=== PATIENT | female | born 1990 | race Caucasian/White ===

== ENCOUNTER 2016-07-02 12:57 | Emergency (ER) | payer OTHER ==
[2016-07-02 13:01] VITALS: BMI 33.7
[2016-07-02 14:13] LABS: URINE APPEARANCE SLCLOUDY; URINE BILIRUBIN NEGATIVE (NEGATIVE); URINE COLOR YELLOW; URINE GLUCOSE (UA) NEGATIVE (NEGATIVE); URINE KETONE NEGATIVE (NEGATIVE); URINE LEUK ESTERASE NEGATIVE (NEGATIVE); URINE NITRITE NEGATIVE (NEGATIVE); URINE UROBILINOGEN NEGATIVE E.U./dl (0.2-1.0)
[2016-07-02 14:25] LABS: URINE BLOOD 3+ (NEGATIVE); URINE PROTEIN 2+ (NEGATIVE)
[2016-07-02 14:27] LABS: URINE BACTERIA RARE /hpf (NONE SEEN); URINE MUCUS RARE; URINE RBC 1409 /hpf (0-3); URINE WBC 64 /hpf (3-5)
[2016-07-02] MEDS ORDERED: IBUPROFEN 400 MG TABLET (FP) PO ONE ×2 (15:02→15:19)
--- NOTE | 2016-07-02 15:05 | PDOC ---
History of Present Illness <Jin Leiva - Last Filed: 07/02/16 14:59> - General History Source: Patient Exam Limitations: No Limitations - History of Present Illness Initial Comments: 07/02/16 15:08 The patient is a 25 year old female, with no significant past medical history, who presents to the emergency department with vaginal bleeding and abdominal pain onset last night. She describes her abdominal pain as a cramping sensation , ranging from mild to moderate, without radiation or modifying factors. She states that initially her menstrual cycle was 1.5 weeks late and took a test that was negative. Two days later she had spotting. A week passed with no vaginal bleeding but again started to spot along with brown discharges. She took a test last night which initially looked negative but on a second look this morning the second line was faint. She denies being on control and is sexually active with 1 person. She denies any history of STDs or abnormal pap smears. The patient denies chest pain, shortness of breath, headache and dizziness. Denies fever, chills, nausea, vomit, diarrhea and constipation. Denies dysuria, frequency and urgency. Allergies: None Past surgical history: Tonsillectomy, elective (18 years old) Social history: No alcohol, tobacco or drug use reported PMD - Dr Gabriel Ruiz <Sean Gleason - Last Filed: 07/02/16 15:09> - General Chief Complaint: Pain Stated Complaint: POSS PRG/VAGINAL BLEEDING Time Seen by Provider: 07/02/16 13:24 Past History - Past Medical History Other medical history: DENIES. - Reproductive History (#): 1 Para: 0 - Psycho/Social/Smoking Cessation Hx Anxiety: No Suicidal Ideation: No Smoking History: Never smoked Hx Alcohol Use: No Drug/Substance Use Hx: No Substance Use Type: None <Jin Leiva - Last Filed: 07/02/16 14:59> <Sean Gleason - Last Filed: 07/02/16 15:09> - Past Medical History Allergies/Adverse Reactions: Allergies Allergy/AdvReac Type Severity Reaction Status Date / Time No Known Allergies Allergy Verified 07/02/16 12:59 Home Medications: Ambulatory Orders NK [No Known Home Medication] 07/02/16 Review of Systems - Review of Systems Constitutional: No: Chills, Fever Respiratory: No: Cough, Shortness of Breath Cardiac (ROS): No: Chest Pain : Yes: See HPI. No: Burning, Dysuria, Frequency All Other Systems: Reviewed and Negative <Jin Leiva - Last Filed: 07/02/16 14:59> *Physical Exam - Vital Signs Last Vital Signs Temp Pulse Resp BP Pulse Ox 98.7 F 94 H 18 152/93 99 07/02/16 12:58 07/02/16 12:58 07/02/16 12:58 07/02/16 12:58 07/02/16 12:58 <Pritesh Leivafaele - Last Filed: 07/02/16 14:59> - Vital Signs Last Vital Signs Temp Pulse Resp BP Pulse Ox 98.7 F 94 H 18 152/93 99 07/02/16 12:58 07/02/16 12:58 07/02/16 12:58 07/02/16 12:58 07/02/16 12:58 - Physical Exam Comments: 07/02/16 15:08 GENERAL: The patient is awake, alert, and fully oriented, in no acute distress. HEAD: Normal with no signs of trauma. EYES: Pupils equal, round and reactive to light, extraocular movements intact, sclera anicteric, conjunctiva clear with no pallor. ENT: Ears normal, nares patent, oropharynx clear without exudates. Moist mucous membranes. NECK: Normal range of motion, supple without lymphadenopathy, JVD, or masses. LUNGS: Breath sounds equal, clear to auscultation bilaterally. No wheeze/ crackles. HEART: Regular rate and rhythm, normal S1 and S2 without murmur or rub. ABDOMEN: +Suprapubic discomfort, no guarding or rebound. Soft/nondistended. BS wnl. No palpable masses. No hepatosplenomegaly. EXTREMITIES: Normal range of motion, no edema. No clubbing or cyanosis. No cords , erythema, or tenderness. NEUROLOGICAL: Cranial nerves II through XII grossly intact. Normal speech, normal gait. PSYCH: Normal mood, normal affect. SKIN: Warm, Dry, normal turgor, no rashes or lesions noted. <Sean Gleason - Last Filed: 07/02/16 15:09> ED Treatment Course - ADDITIONAL ORDERS Additional order review: Laboratory Results 07/02/16 13:25 Urine Color Yellow Urine Appearance Slcloudy Urine pH 5.0 Ur Specific [place] 1.014 Urine Protein 2+ H Urine Glucose (UA) Negative Urine Ketones Negative Urine Blood 3+ H Urine Nitrite Negative Urine Bilirubin Negative Urine Urobilinogen Negative Ur Leukocyte Esterase Negative Urine RBC 1409 Urine WBC 64 Ur Epithelial Cells Rare Urine Bacteria Rare Urine Mucus Rare Urine HCG, Qual Negative <Jin Leiva - Last Filed: 07/02/16 14:59> - ADDITIONAL ORDERS Additional order review: Laboratory Results 07/02/16 13:25 Urine Color Yellow Urine Appearance Slcloudy Urine pH 5.0 Ur Specific [place] 1.014 Urine Protein 2+ H Urine Glucose (UA) Negative Urine Ketones Negative Urine Blood 3+ H Urine Nitrite Negative Urine Bilirubin Negative Urine Urobilinogen Negative Ur Leukocyte Esterase Negative Urine RBC 1409 Urine WBC 64 Ur Epithelial Cells Rare Urine Bacteria Rare Urine Mucus Rare Urine HCG, Qual Negative <Sean Gleason - Last Filed: 07/02/16 15:09> Medical Decision Making - Medical Decision Making 07/02/16 15:00 A portion of this note was documented by scribe services under my direction. I have reviewed the details of the note, within reason, and agree with the documentation with the following case summary and management plan written by me. Healthy 25-year-old female LMP 06/14 presents with irregular menstrual bleeding. Patient had late menses on 06/14, otherwise normal and now presents with cramping and vaginal spotting. Had a negative urine test last night and she felt this morning it looked slightly positive, so she presents for evaluation. No other discharge. Afebrile. Urine is negative Abdominal and pelvic exam are normal with blood in vault, no other discharge, no CMT or adnexal tenderness (chaperoned by medical lab scientist) Urinalysis with blood but no evidence of infection Patient reassured, likely irregular menses, will follow-up with her [facility] as needed. <Jin Leiva - Last Filed: 07/02/16 14:59> *DC/Admit/Observation/Transfer <Jin Leiva - Last Filed: 07/02/16 14:59> - Attestations Scribe Attestion: 07/02/16 15:09 Documentation prepared by Sean Gleason, acting as medical receptionist assistant for Jin Leiva MD <Sean Gleason - Last Filed: 07/02/16 15:09> Diagnosis at time of Disposition: Irregular menstrual bleeding - Referrals Referrals: Ervin Ruiz MD [Primary Care Provider] - - Patient Instructions Printed Discharge Instructions: DI for Vaginal Bleeding Additional Instructions: Activity as tolerated. Stay hydrated. Tylenol 1000 mg every 8 hours and/or ibuprofen 600-800 mg every 8 hours as needed for pain. Your vaginal bleeding is likely due to irregular periods, the urine test here was negative. You should follow up with your primary doctor and [facility] as soon as possible regarding today's emergency department visit. Return to the emergency department for any new or concerning symptoms, particularly severe pain, very heavy bleeding, fevers or chills. A culture was sent to rule out infection, the results should be available in 3-4 days.
[2016-07-02 15:26] VITALS: BP 149/85; PULSE 90; TEMP 98.2
== END 2016-07-02 15:26 | disposition home or self-care (01) ==
LOC: SUPCPDRO 12:57 → JER 12:57
DX: N92.5 Other specified irregular menstruation (principal)
CPT/HCPCS: 36415; 81003; 81015; 84703; 87491; 87591; 99283-25

== ENCOUNTER 2017-02-14 11:26 | Emergency (ER) | payer OTHER ==
[2017-02-14 11:47] VITALS: BP 120/68; PULSE 97; TEMP 98.2; BMI 33.7
--- NOTE | 2017-02-14 13:02 | PDOC ---
History of Present Illness - General Chief Complaint: Back Pain Stated Complaint: PAIN/ RT SHOULDER Time Seen by Provider: 02/14/17 12:40 History Source: Patient Exam Limitations: No Limitations - History of Present Illness Initial Comments: 02/14/17 13:06 My chief complaint: Right upper back pain, History of Present Illness: PT. IS A 26 Y/O FEMALE WITH H/O ASTHMA HERE TODAY C/ O PAIN RT. MEDIAL SCAPULAR AREA WITH MOVEMENT FOR 2 1/2 WKS. 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 SHOULDER TO CARRY. PT. ALSO C/O COUGH LAST NIGHT WITH WHEEZING WITH RELIEF FROM VENTOLIN PUMP. PT. ALSO C/O NASAL CONGESTION RT. NOSTRIL FOR FEW DAYS. PT IS NOT ON ANY OCP'S. PT. DENIES SHORTNESS OF BREATH. 02/14/17 13:17 Timing/Duration: intermittent Severity: moderate Associated Symptoms: reports: cough (last night none today, wheezing last night relieved by ventolin ), other (right medial scapular area with movement ) Past History - Past Medical History Allergies/Adverse Reactions: Allergies Allergy/AdvReac Type Severity Reaction Status Date / Time No Known Allergies Allergy Verified 02/14/17 11:43 Home Medications: Ambulatory Orders Fluticasone Prop 0.05% Nasal [Flonase -] 2 spray NS DAILY #1 spray.pump Naproxen [Naprosyn -] 500 mg PO Q12H PRN #14 tablet MDD 2 02/14/17 Asthma: Yes COPD: No - Reproductive History (#): 1 Para: 0 - Suicide/Smoking/Psychosocial Hx Smoking History: Never smoked Hx Alcohol Use: No Drug/Substance Use Hx: No Substance Use Type: None Review of Systems - Review of Systems Able to Perform ROS?: Yes Constitutional: No: Symptoms Reported HEENTM: Yes: Nose Congestion (right nostril ) Respiratory: Yes: Cough (dry last night, wheezing last night relieved by ventolin ), Wheezing (last night ). No: Orthopnea, Shortness of Breath, SOB with Exertion, SOB at Rest, Stridor, Productive cough Cardiac (ROS): No: Symptoms Reported ABD/GI: No: Symptoms Reported : No: Symptoms Reported Musculoskeletal: Yes: Muscle Pain (right medial scapular with movement ) Integumentary: No: Symptoms Reported Neurological: No: Symptoms reported *Physical Exam - Vital Signs Last Vital Signs Temp Pulse Resp BP Pulse Ox 98.2 F 97 H 19 120/68 98 02/14/17 11:44 02/14/17 11:44 02/14/17 11:44 02/14/17 11:44 02/14/17 11:44 - Physical Exam General Appearance: Yes: Appropriately Dressed HEENT: positive: TMs Normal, Pharyngeal Erythema, Nasal Congestion (rt. nostril ), Other (no tonsils). negative: Rhinorrhea Neck: negative: Lymphadenopathy (R), Lymphadenopathy (L) Respiratory/Chest: positive: Lungs Clear, Normal Breath Sounds. negative: Chest Tender, Respiratory Distress Cardiovascular: positive: Regular Rhythm, Regular Rate, S1, S2 Musculoskeletal: positive: Normal Inspection. negative: CVA Tenderness, CVA Tenderness (R), CVA Tenderness (L), Decreased Range of Motion (upper extremities ), Vertebral Tenderness Extremity: positive: Normal Capillary Refill, Normal Inspection, Normal Range of Motion (b/l shoulders), Tender (rt. medial muscular tenderness medial to scapular, paraspinal muscle tenderness right thoracic ) Integumentary: positive: Normal Color Neurologic: positive: Fully Oriented, Alert, Normal Response, Motor Strength 5/ 5 (b/l upper extremities ), Respond to painful stimul (b/l upper extremities ), Responsive. negative: Numbness, Sensory Deficit (b/l upper extremities ) Medical Decision Making - Medical Decision Making 02/14/17 13:15 PT. IS A 26 Y/O FEMALE WITH H/O ASTHMA HERE TODAY C/O PAIN RT. MEDIAL SCAPULAR AREA WITH MOVEMENT FOR 2 1/2 WKS. 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 SHOULDER TO CARRY. PT. ALSO C/O COUGH LAST NIGHT WITH WHEEZING WITH RELIEF FROM VENTOLIN PUMP. PT. ALSO C/O NASAL CONGESTION RT. NOSTRIL FOR FEW DAYS. PT IS NOT ON ANY OCP'S. RT. UPPER BACK PAIN MEDIAL TO SCAPULAR THORACIC AREA' NASAL CONGESTION PLAN: URINE HCG NEGATIVE TORADOL 60 MG IM NOW 02/14/17 13:38 FEELIMG BETTER WILL DISCHARGE TO HOME FOLLOW UP WITH ORTHOPEDIST NAPROSYN 500 MG BID PRN PAIN # 14 TABS 02/14/17 23:09 *DC/Admit/Observation/Transfer Diagnosis at time of Disposition: Upper back pain on right side, Nasal congestion - Discharge Dispostion Disposition: HOME Condition at time of disposition: Stable - Prescriptions Prescriptions: Fluticasone Prop 0.05% Nasal [Flonase -] 2 spray NS DAILY #1 spray.pump Naproxen [Naprosyn -] 500 mg PO Q12H PRN #14 tablet MDD 2 PRN Reason: Pain - Referrals Referrals: Ervin Ruiz MD [Primary Care Provider] - - Patient Instructions - Post Discharge Activity
[2017-02-14] MEDS ORDERED: KETOROLAC TROMETHAMINE 60 MG/2 ML VIAL ONE ×2 (13:25→13:27)
== END 2017-02-14 13:45 | disposition home or self-care (01) ==
LOC: JERFT 11:26
DX: M54.9 Dorsalgia, unspecified (principal); R09.81 Nasal congestion; J45.909 Unspecified asthma, uncomplicated
CPT/HCPCS: 84703; 99281-25

== ENCOUNTER 2019-03-06 04:05 | Emergency (ER) | payer OTHER ==
[2019-03-06 04:28] VITALS: BP 116/84; PULSE 108; TEMP 98.8; BMI 37.0
[2019-03-06] MEDS ORDERED: ACETAMINOPHEN 500 MG TABLET (FP) PO ONE (04:42)
--- NOTE | 2019-03-06 04:46 | PDOC ---
History of Present Illness - General Chief Complaint: Ear Problem Stated Complaint: R EAR PAIN Time Seen by Provider: 03/06/19 04:28 History Source: Patient Exam Limitations: No Limitations - History of Present Illness Initial Comments: 03/06/19 04:46 HISTORY OF PRESENT ILLNESS: This a 28-year-old woman with past medical history of tonsillectomy presents emergency department for evaluation of acute onset right ear pain starting this morning when she woke up. Patient reports she took Tylenol which helped relieve the pain in her ear. When the Tylenol wore off the pain came back and was more intense than it was upon initial presentation. Pain is currently 7/10 and describes as a pressure throbbing sensation. Pain radiates to her throat on the right side. Patient took Motrin prior to coming to the hospital tonight. She denies any discharge or drainage from the ears. Patient does use Q-tips but does not use ear buds or headphones. Patient denies any recent swimming or trauma. No recent travel or sick contacts. PAST MEDICAL HISTORY: Denies past medical history SURGICAL HISTORY: Tonsillectomy 1999 ALLERGIES: No known drug allergies REVIEW OF SYSTEMS General/Constitutional: Denies fever or chills. Denies weakness, weight change. HEENT: See HPI Cardiovascular: Denies chest pain or shortness of breath. Respiratory: Denies cough, wheezing, or hemoptysis. Gastrointestinal: Denies nausea, vomiting, diarrhea or constipation. Denies rectal bleeding. Genitourinary: Denies dysuria, frequency, or change in urination. Musculoskeletal: Denies joint or muscle swelling or pain. Denies neck or back pain. Skin and breasts: Denies rash or easy bruising. Neurologic: Denies headache, vertigo, loss of consciousness, or loss of sensation. Psychiatric: Denies depression or anxiety. Endocrine: Denies increased thirst. Denies abnormal weight change. Hematologic/Lymphatic: Denies anemia, easy bleeding, or history of blood clots. Allergic/Immunologic: Denies hives or skin allergy. Denies latex allergy. PHYSICAL EXAM General Appearance: Well-appearing, appropriately dressed. No apparent distress , no intoxication. HEENT: EOMI, PERRLA, normal ENT inspection, normal voice, pharynx normal. No conjunctival pallor. No photophobia, scleral icterus. Left TM is within normal limits. Right TM is erythematous and bulging. External auditory canals clear without erythema or exudates. No mastoid or tragal tenderness bilaterally. Neck: Supple. Trachea midline. No tenderness, rigidity, carotid bruit, stridor , lymphadenopathy, or thyromegaly. Respiratory/Chest: Lungs CTAB. No shortness of breath, chest tenderness, respiratory distress, accessory muscle use. No crackles, rales, rhonchi, stridor , wheezing, dullness Cardiovascular: RRR. S1, S2. No JVD, murmur, bradycardia, tachycardia. Neurologic: tuna purse seiner II-XII intact. Fully oriented, alert. Appropriate mood/affect. Motor strength 5/5. No appreciable EOM palsy, facial droop or sensory deficit. Is this a multiple visit Asthma Patient?: No Past History - Past Medical History Allergies/Adverse Reactions: Allergies Allergy/AdvReac Type Severity Reaction Status Date / Time No Known Allergies Allergy Verified 03/06/19 04:30 Home Medications: Ambulatory Orders Fluticasone Prop 0.05% Nasal [Flonase -] 2 spray NS DAILY #1 spray.pump Naproxen [Naprosyn -] 500 mg PO Q12H PRN #14 tablet MDD 2 02/14/17 Amoxicillin - [Amoxicillin 500mg Capsule -] 1,000 mg PO BID #40 capsule Asthma: Yes COPD: No - Reproductive History (#): 1 Para: 0 - Psycho Social/Smoking Cessation Hx Smoking History: Never smoked Hx Alcohol Use: No Drug/Substance Use Hx: No Substance Use Type: None *Physical Exam - Vital Signs Last Vital Signs Temp Pulse Resp BP Pulse Ox 98.8 F 108 H 19 116/84 98 03/06/19 04:10 03/06/19 04:10 03/06/19 04:10 03/06/19 04:10 03/06/19 04:10 Medical Decision Making - Medical Decision Making 03/06/19 04:49 A/P: 28-year-old woman with acute otitis media of the right ear Likely a viral infection given patient's nasal congestion and sore throat. since patient is experiencing worsening pain which she describes as crescendo I will treat with antibiotics on discharge. Tylenol 1 g orally now Discharge home with prescription for amoxicillin 1 g twice daily for 10 days. We will give referral for ENT follow-up I discussed the physical exam findings, ancillary test results and final diagnoses with the patient. I answered all of the patient's questions. The patient was satisfied with the care received and felt comfortable with the discharge plan and treatment plan. The patient will call their primary care physician within 24 hours to arrange follow-up and will return to the Emergency Department with any new, persistent or worsening symptoms.. Discharge - Discharge Information Problems reviewed: Yes Clinical Impression/Diagnosis: Otitis media Qualifiers: Otitis media type: unspecified Laterality: right Qualified Code(s): H66.91 - Otitis media, unspecified, right ear Condition: Fair Disposition: HOME - Admission No - Additional Discharge Information Prescriptions: Amoxicillin - [Amoxicillin 500mg Capsule -] 1,000 mg PO BID #40 capsule - Follow up/Referral Referrals: Ervin Ruiz MD [Primary Care Provider] - Stewart Yee MD [Staff Physician] - - Patient Discharge Instructions Additional Instructions: Take amoxicillin 1000 mg twice a day as prescribed. Give your child Tylenol and Motrin as needed for fever and pain. Follow manufacturers instructions for appropriate dosage. Make an appointment with the ENT specialist for reevaluation symptoms do not improve in the next 4 days. Return to emergency department for worsening pain, fevers even while giving medication, drainage from the ears, or any other concerns. Thank you very much for choosing us to provide your emergent healthcare needs. - Post Discharge Activity
[2019-03-06] MEDS ORDERED: ACETAMINOPHEN 500 MG TABLET (FP) ONE (04:54)
== END 2019-03-06 04:57 | disposition home or self-care (01) ==
LOC: JER 04:05
DX: H66.91 Otitis media, unspecified, right ear (principal)
CPT/HCPCS: 99281-25

== ENCOUNTER 2021-08-22 12:08 | Emergency (ER) | payer OTHER ==
[2021-08-22 12:11] VITALS: BP 129/72; PULSE 85; TEMP 98.8; BMI 38.2
== END 2021-08-22 13:21 | disposition home or self-care (01) ==
LOC: JERFT 12:08
DX: S60.312A Abrasion of left thumb, initial encounter (principal); W55.03XA Scratched by cat, initial encounter
CPT/HCPCS: 99283-25

== ENCOUNTER 2023-10-18 20:10 | Emergency (ER) | payer OTHER ==
[2023-10-18 20:21] VITALS: RESP 16; TEMP 98.6; BMI 38.6
[2023-10-18] MEDS ORDERED: ACETAMINOPHEN INJECTION 100 ML IVPB ONE (21:57)
[2023-10-18] MEDS: SODIUM CHLORIDE 0.9% 500 ML INFUS.BAG IV ONE (22:04)
[2023-10-18] MEDS: ACETAMINOPHEN 1000 MG/100 ML BAG IVPB ONE (22:04)
[2023-10-18 22:13] LABS: BASO % 0.7 % (0-2.0); EOS % 3.2 % (0-4.5); HEMATOCRIT 40.5 % (32.4-45.2); HEMOGLOBIN 13.7 GM/dL (10.7-15.3); LYMPH % 30.1 % (8-40); MCHC 33.8 g/dl (32.0-36.0); MEAN PLT VOLUME 7.7 fl (7.5-11.1); PLATELET COUNT 383 10^3/uL (134-434); RBC 5.07 M/mm3 (3.60-5.2); RDW 14.7 % (11.6-15.6); WHITE BLOOD COUNT 13.8 K/mm3 (4.0-10.0)
[2023-10-18 22:18] LABS: PH,URINE 5.5 (5.0-8.0); URINE APPEARANCE CLEAR; URINE BILIRUBIN NEGATIVE (NEGATIVE); URINE COLOR YELLOW; URINE GLUCOSE (UA) NEGATIVE (NEGATIVE); URINE KETONE TRACE (NEGATIVE); URINE LEUK ESTERASE NEGATIVE (NEGATIVE); URINE NITRITE NEGATIVE (NEGATIVE); URINE PROTEIN NEGATIVE (NEGATIVE); URINE UROBILINOGEN 0.2 mg/dL (0.2-1.0)
[2023-10-18 22:30] LABS: POTASSIUM 3.9 mmol/L (3.5-5.1)
[2023-10-18 22:32] LABS: CALCIUM 9.1 mg/dL (8.5-10.1)
[2023-10-18 22:33] LABS: BLOOD UREA NITROGEN 15.2 mg/dL (7-18); MAGNESIUM 2.2 mg/dL (1.8-2.4)
[2023-10-18 22:36] LABS: CREATININE 0.9 mg/dL (0.55-1.3)
[2023-10-18 22:38] LABS: BILIRUBIN,TOTAL 0.6 mg/dL (0.2-1); TOT PROT 7.4 g/dl (6.4-8.2)
[2023-10-19] MEDS ORDERED: LIDOCAINE 4% PATCH TP ONE (00:22)
[2023-10-19] MEDS: LIDOCAINE 4% PATCH TP ONE (00:28)
[2023-10-19 00:30] VITALS: BP 142/91; PULSE 77
[2023-10-19] MEDS ORDERED: LIDOCAINE PATCH REMOVAL MC SCH (09:00)
== END 2023-10-19 00:37 | disposition home or self-care (01) ==
LOC: JER 20:10
PROC: 3E033NZ Introduction of Analgesics, Hypnotics, Sedatives into Peripheral Vein, Percutaneous Approach (ICD-10-PCS; principal; 2023-10-18)
DX: R42 Dizziness and giddiness (principal); M25.562 Pain in left knee; R20.0 Anesthesia of skin; R20.2 Paresthesia of skin; R51.9 Headache, unspecified; M79.662 Pain in left lower leg; Z20.822 Contact with and (suspected) exposure to COVID-19
CPT/HCPCS: 0241U-QW; 36415; 80053; 81003; 83735; 84703; 85025; 87086; 93971-TC; 99284-25; J0131